=== PATIENT | female | born 1990 | race Caucasian/White ===

== ENCOUNTER → 2016-04-17 | Outpatient (CLI) | payer OTHER ==
[2016-04-17 10:14] LABS: CH 30.8; CHCM 34.6; HCT 39.9 % (34.0-46.0); HGB 13.5 gm/dL (11.4-16.0); MCH 30.2 pg (25.0-35.0); MCHC 33.8 g/dL (31.0-37.0); MCV 89.4 fL (80.0-100.0); Mean Platelet Volume 7.8; RBC 4.47 m/uL (3.80-5.40); WBC 6.4 k/uL (3.8-10.6)
[2016-04-17 11:04] LABS: ALT 21 U/L (9-52); AST 18 U/L (14-36); Alkaline Phosphatase 56 U/L (38-126); Anion Gap 12 mmol/L; Blood Urea Nitrogen 11 mg/dL (7-17); Calcium 9.7 mg/dL (8.4-10.2); Carbon Dioxide 27 mmol/L (22-30); Chloride 105 mmol/L (98-107); Glucose 65 mg/dL (74-99); Non-African American GFR(MDRD) >60 (>60 ml/min/1.73 sqM); Potassium 3.9 mmol/L (3.5-5.1); Sodium 144 mmol/L (137-145); Total Bilirubin 0.7 mg/dL (0.2-1.3); Total Protein 7.7 g/dL (6.3-8.2)
[2016-04-17 11:20] LABS: Prolactin 10.3 ng/mL (3.0-18.6)
== END | disposition home or self-care (01) ==
LOC: LABWHC1 09:40
PROVIDERS: ATTEND Internal Medicine Endocrinology, Diabetes & Metabolism
DX: R53.83 Other fatigue (principal)
CPT/HCPCS: 36415; 80053; 82533; 84146; 84439; 84443; 84445; 84481; 85027

== ENCOUNTER → 2016-04-21 | Outpatient (CLI) | payer OTHER ==
--- NOTE | 2016-04-21 17:18 | US ---
EXAMINATION TYPE: US thyroid st tissue head/neck DATE OF EXAM: 04/21/2016 4:15 PM COMPARISON: NONE CLINICAL HISTORY: 25-year-old female Z86.39 HX HYPOTHYROIDISM. TECHNIQUE: Multiple sonographic images of the thyroid gland are obtained. FINDINGS: Right Lobe: 5.5 x 1.8 x 2.1 cm Left Lobe: 5.3 x 1.4 x 2.5 cm Isthmus Thickness: 0.6 cm Glandular parenchyma is very slightly heterogeneous. No discrete nodule is seen. Bilateral neck scanned, no abnormal lymphadenopathy noted. IMPRESSION: Thyromegaly with measurements as above. No discrete nodule.
== END | disposition home or self-care (01) ==
LOC: RADUSWWP 15:59
PROVIDERS: ATTEND Internal Medicine Endocrinology, Diabetes & Metabolism
DX: E01.0 Iodine-deficiency related diffuse (endemic) goiter (principal); Z86.39 Personal history of other endocrine, nutritional and metabolic disease
CPT/HCPCS: 76536

== ENCOUNTER → 2016-04-27 | Outpatient (CLI) | payer OTHER ==
--- NOTE | 2016-04-28 11:30 | NM ---
EXAMINATION TYPE: NM thyroid image w uptake DATE OF EXAM: 04/28/2016 11:14 AM COMPARISON: NONE HISTORY: R53.83 other fatigue Z86.39 personal hx of hyperthyroidism TECHNIQUE: After the intravenous administration of 10.24 mCi Tc 99m Sodium Pertechnetate, thyroid benjamin ging is performed 10 minutes post injection. Thyroid iodine uptake is calculated after the oral admin istration of 15.0 uCi I-131 capsule. FINDINGS: There is normal distribution of activity throughout the gland. The 4 hour iodine uptake is calculated at 13% (normal range 8-14%). The 24-hour iodine uptake is calculated at 36.5% (normal ran ge 15-35%). The thyroid lobes appear to be somewhat enlarged. I do not see evidence for hot or cold defect at thi s time. IMPRESSION: 1. Borderline hypertrapping at 24 hours. Correlate with thyroid function testing. 2. Thyroid glandular enlargement.
== END | disposition home or self-care (01) ==
LOC: RADNMMAIN 10:38
PROVIDERS: ATTEND Internal Medicine Endocrinology, Diabetes & Metabolism
DX: E04.9 Nontoxic goiter, unspecified (principal); R53.83 Other fatigue; Z86.39 Personal history of other endocrine, nutritional and metabolic disease
CPT/HCPCS: 78014; A9528; A9512

== ENCOUNTER → 2016-08-02 | Outpatient (CLI) | payer OTHER | END | disposition home or self-care (01) | LOC: LABWHC1 12:22 | PROVIDERS: ATTEND Internal Medicine Endocrinology, Diabetes & Metabolism | DX: E05.90 Thyrotoxicosis, unspecified without thyrotoxic crisis or storm (principal) | CPT/HCPCS: 36415; 84439; 84443; 84480 ==

== ENCOUNTER → 2017-07-31 | Outpatient (CLI) | payer OTHER ==
[2017-07-31 16:55] LABS: Basophils % (A) 0 %; Eosinophils # (A) 0.1 k/uL (0-0.7); Eosinophils % (A) 3 %; HCT 36.1 % (34.0-46.0); HGB 12.5 gm/dL (11.4-16.0); Lymphocytes % (A) 35 %; MCH 30.2 pg (25.0-35.0); MCHC 34.6 g/dL (31.0-37.0); MCV 87.2 fL (80.0-100.0); Monocytes # (A) 0.3 k/uL (0-1.0); Monocytes % (A) 5 %; Neutrophils # (A) 3.1 k/uL (1.3-7.7); Neutrophils % (A) 55 %; Platelet Count 242 k/uL (150-450); RBC 4.14 m/uL (3.80-5.40); WBC 5.6 k/uL (3.8-10.6)
[2017-07-31 17:02] LABS: ALT 25 U/L (9-52); AST 19 U/L (14-36); Albumin 3.9 g/dL (3.5-5.0); Alkaline Phosphatase 40 U/L (38-126); Anion Gap 12 mmol/L; Blood Urea Nitrogen 10 mg/dL (7-17); Calcium 9.1 mg/dL (8.4-10.2); Carbon Dioxide 25 mmol/L (22-30); Chloride 103 mmol/L (98-107); Glucose 84 mg/dL (74-99); Potassium 3.9 mmol/L (3.5-5.1); Sodium 140 mmol/L (137-145); Total Bilirubin 0.2 mg/dL (0.2-1.3); Total Protein 6.9 g/dL (6.3-8.2)
[2017-07-31 17:18] LABS: T4, Free (Free Thyroxine) 1.09 ng/dL (0.78-2.19)
== END | disposition home or self-care (01) ==
LOC: LABWHC1 16:26
PROVIDERS: ATTEND Internal Medicine Endocrinology, Diabetes & Metabolism
DX: E05.90 Thyrotoxicosis, unspecified without thyrotoxic crisis or storm (principal); Z86.39 Personal history of other endocrine, nutritional and metabolic disease
CPT/HCPCS: 36415; 80053; 84439; 84443; 84480; 85025

== ENCOUNTER → 2017-12-11 | Outpatient (CLI) | payer OTHER ==
[2017-12-11 16:59] LABS: T4, Free (Free Thyroxine) 1.03 ng/dL (0.78-2.19)
== END | disposition home or self-care (01) ==
LOC: LABWHC1 16:12
PROVIDERS: ATTEND Internal Medicine Endocrinology, Diabetes & Metabolism
DX: E05.00 Thyrotoxicosis with diffuse goiter without thyrotoxic crisis or storm (principal)
CPT/HCPCS: 36415; 84439; 84443; 84480

== ENCOUNTER → 2017-12-24 | Outpatient (CLI) | payer OTHER ==
--- NOTE | 2017-12-24 14:08 | US ---
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 On thyroid medications. No hx of biopsy. GLAND SIZE: Right Lobe: 5.5 x 2.6 x 2.2 Overall Parenchyma: homogenous Left Lobe: 5.2 x 2.5 x 1.7 cm Overall Parenchyma: homogeneous Isthmus Thickness: 0.6 cm NODULES RIGHT: # of nodules measured on right: 0 LEFT: # of nodules measured on left: 0 ISTHMUS: # of nodules measured in the isthmus: 0 Bilateral neck scanned, no evidence of lymphadenopathy. Bilateral thyroid lobes appear enlarged. IMPRESSION: Thyroidomegaly without evidence for solid or cystic nodule.
== END | disposition home or self-care (01) ==
LOC: RADUSWWP 13:21
PROVIDERS: ATTEND Internal Medicine Endocrinology, Diabetes & Metabolism
DX: E04.9 Nontoxic goiter, unspecified (principal)
CPT/HCPCS: 76536

== ENCOUNTER → 2018-03-25 | Outpatient (CLI) | payer OTHER ==
[2018-03-25 17:51] LABS: T4, Free (Free Thyroxine) 1.1 ng/dL (0.80-1.80)
== END | disposition home or self-care (01) ==
LOC: LABWHC1 11:24
PROVIDERS: ATTEND Internal Medicine Endocrinology, Diabetes & Metabolism
DX: E05.00 Thyrotoxicosis with diffuse goiter without thyrotoxic crisis or storm (principal)
CPT/HCPCS: 36415; 84439; 84443; 84480

== ENCOUNTER → 2018-07-08 | Outpatient (CLI) | payer OTHER ==
[2018-07-08 19:15] LABS: T4, Free (Free Thyroxine) 1.1 ng/dL (0.80-1.80)
== END | disposition home or self-care (01) ==
LOC: LABWHC1 12:01
PROVIDERS: ATTEND Internal Medicine Endocrinology, Diabetes & Metabolism
DX: E05.00 Thyrotoxicosis with diffuse goiter without thyrotoxic crisis or storm (principal)
CPT/HCPCS: 36415; 84439; 84443; 84480

== ENCOUNTER → 2018-11-11 | Outpatient (CLI) | payer OTHER ==
[2018-11-11 11:15] LABS: Basophils % (A) 0 %; Eosinophils # (A) 0.1 k/uL (0-0.7); Eosinophils % (A) 3 %; HCT 36.1 % (34.0-46.0); HGB 12.6 gm/dL (11.4-16.0); Lymphocytes # (A) 1.4 k/uL (1.0-4.8); Lymphocytes % (A) 32 %; MCH 30.3 pg (25.0-35.0); MCV 86.7 fL (80.0-100.0); Monocytes # (A) 0.2 k/uL (0-1.0); Monocytes % (A) 5 %; Neutrophils # (A) 2.5 k/uL (1.3-7.7); Neutrophils % (A) 58 %; Platelet Count 227 k/uL (150-450); RBC 4.16 m/uL (3.80-5.40); RDW 13.1 % (11.5-15.5); WBC 4.4 k/uL (3.8-10.6)
[2018-11-11 13:00] LABS: Erythrocyte Sedimentation Rate 11 mm/hr (0-20)
[2018-11-11 16:25] LABS: Vitamin D 25 Hydroxy 39.7 ng/mL (30.0-100.0)
[2018-11-11 16:26] LABS: Rheumatoid Factor <4 IU/mL (0-15)
[2018-11-11 17:42] LABS: Cyclic Citrull Pep IgG Unit 0.9 U/mL; Cyclic Citrullinated Pep IgG NEGATIVE (NEGATIVE)
[2018-11-11 17:56] LABS: ALT 8 U/L (8-44); AST 14 U/L (13-35); African American GFR (CKD) 114.7 (60.0-200.0); C Reactive Protein <0.4 mg/dL (0.0-0.8); Calcium 9.2 mg/dL (8.7-10.3); Carbon Dioxide 26.3 mmol/L (21.6-31.8); Chloride 109 mmol/L (96-109); Creatine Kinase 70 U/L (26-186); Glucose 73 mg/dL (70-110); Potassium 4.5 mmol/L (3.5-5.5); Sodium 140 mmol/L (135-145); Uric Acid 3.3 mg/dL (2.9-7.7)
[2018-11-12 07:19] LABS: Angiotensin-1 Converting Enz. 25 U/L (8-52)
[2018-11-12 11:23] LABS: HLA B27 NEGATIVE
== END | disposition home or self-care (01) ==
LOC: LABWHC1 10:32
PROVIDERS: ATTEND Physician Assistant
DX: M54.6 Pain in thoracic spine (principal); M54.16 Radiculopathy, lumbar region; M54.5 Low back pain
CPT/HCPCS: 36415; 80048; 82164; 82306; 82550; 84439; 84443; 84450; 84460; 84550; 85025; 85652; 86038; 86140; 86200; 86431; 86812

== ENCOUNTER → 2019-01-31 | Outpatient (CLI) | payer OTHER ==
--- NOTE | 2019-01-31 09:56 | US ---
EXAMINATION TYPE: US thyroid st tissue head/neck DATE OF EXAM: 01/31/2019 COMPARISON: US 12/24/2017 CLINICAL HISTORY: E05.00 thyrotoxicosis with diffuse goiter and with. F/U, pt has no complaints at th is time GLAND SIZE: Right Lobe: 6.0 x 2.2 x 2.3 cm Overall Parenchyma: Slightly heterogenous Left Lobe: 6.3 x 2.0 x 2.1 cm Overall Parenchyma: Slightly heterogeneous Isthmus Thickness: 0.6 cm Bilateral neck scanned, no evidence of lymphadenopathy. Bilateral thyroid enlarged and slightly heter ogeneous. IMPRESSION: Redemonstration of thyromegaly with no measurable cystic or solid mass seen.
== END ==
LOC: RADUSWWP 09:30
PROVIDERS: ATTEND Internal Medicine Endocrinology, Diabetes & Metabolism
DX: E01.0 Iodine-deficiency related diffuse (endemic) goiter (principal)
CPT/HCPCS: 76536

== ENCOUNTER → 2019-03-03 | Outpatient (CLI) | payer OTHER ==
[2019-03-04 00:54] LABS: T4, Free (Free Thyroxine) 1.2 ng/dL (0.80-1.80)
== END ==
LOC: LABWHC1 14:18
PROVIDERS: ATTEND Internal Medicine Endocrinology, Diabetes & Metabolism
DX: E05.00 Thyrotoxicosis with diffuse goiter without thyrotoxic crisis or storm (principal)
CPT/HCPCS: 36415; 84439; 84443

== ENCOUNTER → 2022-02-20 | Outpatient (CLI) | payer OTHER ==
--- NOTE | 2022-02-22 18:25 | CT ---
EXAMINATION TYPE: CT urogram wo/w con DATE OF EXAM: 02/20/2022 COMPARISON: None HISTORY: 31-year-old female R31.0, GROSS HEMATURIA TECHNIQUE: Contiguous axial scanning of the abdomen and pelvis performed without and with IV Contrast , patient injected with 70ml mL of Isovue 300. Delayed images through the kidneys and bladder were ob tained. Coronal/sagittal reconstructions performed. 3-D reconstructions generated on a dedicated work station. CT DLP: 1056.8 mGycm Automated exposure control for dose reduction was used. FINDINGS: Partially visualized left breast implant. Heart normal size without pericardial effusion. Lung bases clear without pleural effusion. Liver borderline in size at 17.7 cm. No focal liver lesion or biliary ductal dilatation. Portal venou s system is patent. No abnormal or gallbladder distention. A couple gallstones are present measuring up to 4 mm. The adrenal glands, spleen, and pancreas within normal limits. No renal calculi or suspicious renal mass is seen. Symmetric uptake and excretion of contrast from both kidneys. No suspicious filling defects within th e renal collecting systems. The ureters are largely visualized opacified. Only short segments of the distal third left ureter remain nonopacified. Otherwise, no abnormal soft tissue thickening or filling defect is seen. No dilated small bowel, free fluid, or free air. No mesenteric or retroperitoneal lymphadenopathy. Normal appendix. There is mild overall stool burden. No pericolic inflammatory change. Bladder urine distended. No suspicious filling defect identified within the bladder. Uterus is anteverted. Both ovaries are visualized. There is a 2.5 cm dominant follicle or functional cyst of the left ovary. No abnormal fluid collection in the pelvis or pelvic lymphadenopathy. Bones: No osseous destructive process. IMPRESSION: 1. NO NEPHROLITHIASIS, SUSPICIOUS RENAL MASS, OR HYDRONEPHROSIS. 2. NO SPECIFIC FINDING TO EXPLAIN THE PATIENT'S HEMATURIA. 3. A COUPLE TINY 4 MM GALLSTONES. 4. A 2.5 CM DOMINANT FOLLICLE OR FUNCTIONAL CYST OF THE LEFT OVARY.
== END | disposition home or self-care (01) ==
LOC: RADCTMAIN 13:39
PROVIDERS: ATTEND Urology
DX: K80.20 Calculus of gallbladder without cholecystitis without obstruction (principal); N83.202 Unspecified ovarian cyst, left side; R31.0 Gross hematuria
CPT/HCPCS: 74178; 74400; Q9967